=== PATIENT | female | born 1965 | race Caucasian/White ===

== ENCOUNTER 2019-02-03 15:41 | Emergency (ER) | payer MEDICAID ==
[~2019-02-03] VITALS: Ht 162.6 cm; Wt 88.0 kg
[2019-02-03 15:53] VITALS: BP 142/63; Ht 162.6 cm; Wt 88.0 kg
== END 2019-02-03 18:20 | disposition home or self-care (01) ==
LOC: EDBD 15:41 → ED 15:41
DX: H10.33 Unspecified acute conjunctivitis, bilateral (principal); I12.0 Hypertensive chronic kidney disease with stage 5 chronic kidney disease or end stage renal disease; N18.6 End stage renal disease; Z99.2 Dependence on renal dialysis